=== PATIENT | male | born 1995 | race Caucasian/White ===

== ENCOUNTER 2018-03-30 18:07 | Emergency (ER) | payer BC ==
[~2018-03-30] VITALS: Ht 175.3 cm; Wt 119.0 kg
[2018-03-30 18:23] VITALS: BP 118/63; PULSE 88; RESP 18; Ht 175.3 cm; Wt 119.0 kg
[2018-03-30] MEDS ORDERED: CITA20TA8 PO (20:23)
[2018-03-30] MEDS ORDERED: OLAN20TA29 PO (20:23)
[2018-03-30] MEDS ORDERED: CITA10TA5 PO (20:23)
[2018-03-30] MEDS ORDERED: OLAN10TA32 PO (20:23)
--- NOTE | 2018-03-30 20:35 | ERD ---
ER Documentation Chief Complaint Chief Complaint PYSCH MED REFILL REQUEST HPI 23-year-old male with history of bipolar disorder order and schizophrenia is accompanied by his mother requesting for medication refill. Patient states that he was recently released from [facility] hospital. He had a appointment with his psychiatrist on March 19, 2018, but he missed that appointment. His medication ran out 2 days ago. Mother states that he already made another appointments, which is on 04/08/2018. Mother states that she will make sure patient would not miss his follow-up appointment. Patient is taking olanzapine and citalopram for his psychiatric conditions. Denies suicidal or homicidal id eations. ROS All systems reviewed and are negative except as per history of present illness. Medications Home Meds Active Scripts Citalopram Hydrobromide* (Citalopram Hydrobromide*) 20 Mg Tablet, 20 MG PO DAILY for 14 Days, #14 TAB Prov:JENAE GLYNN. MANAGER GYN 03/30/18 Citalopram Hydrobromide* (Citalopram Hydrobromide*) 10 Mg Tablet, 10 MG PO DAILY for 14 Days, #14 TAB Prov:JENAE GLYNN. MANAGER GYN 03/30/18 Olanzapine* (Olanzapine* ODT) 20 Mg Tab.rapdis, 20 MG PO QHS for 14 Days, #14 TAB Prov:JENAE GLYNN. MANAGER GYN 03/30/18 Olanzapine* (Olanzapine* ODT) 10 Mg Tab.rapdis, 10 MG PO BID for 14 Days, #28 TAB Prov:JENAE GLYNN. MANAGER GYN 03/30/18 PMhx/Soc Medical and Surgical Hx: pt denies Medical Hx, pt denies Surgical Hx Hx Alcohol Use: No Hx Substance Use: No Hx Tobacco Use: No Smoking Status: Never smoker Physical Exam Vitals Vital Signs Date Temp Pulse Resp B/P (MAP) Pulse Ox O2 O2 Flow FiO2 Time Delivery Rate 03/30/18 97.8 88 18 118/63 96 18:23 (81) Physical Exam General: Well-developed, well-nourished, conscious and coherent, in no distress Skin: Warm and dry without rash, good texture and turgor Head: Normocephalic without evidence of trauma Chest: Normal AP diameter. Good expansion without retractions. Nontender. Lungs are clear to auscultate bilaterally with good tidal volume Heart: Regular rate and rhythm. No murmur, rub, or gallops heard Extremities: Full range of motion. Good strength bilaterally. Neuro: Alert and oriented 4, GCS 15. Psych: Normal mood, good eye contact. Procedures/MDM Well-appearing 23-year-old male with history of bipolar disorder and schizophrenia presents the ED for medication refill. I will refill his medication for 2 weeks, as patient already has a follow-up appointment with his psychiatrist. I advised patient that he should not miss his follow-up appointment. Patient does not have any suicidal homicidal ideations, suitable for outpatient management. Patient appears well, stable for discharge and outpatient management. Medical decision making shared with patient and family. Education provided to patient and family. Patient and family expressed understanding of the plan. Medications on discharge: Olanzapine, citalopram. Follow-up: Primary care provider in 2-3 days or return to ED if worse. Disclaimer: Inadvertent spelling and grammatical errors are likely due to EHR/dictation software use and do not reflect on the overall quality of patient care. Also, please note that the electronic time recorded on this note does not necessarily reflect the actual time of the patient encounter. Departure Diagnosis: Primary Impression: Encounter for medication refill Condition: Stable Patient Instructions: Taking Medicine Safely Referrals: [facility] YOU HAVE RECEIVED A MEDICAL SCREENING EXAM AND THE RESULTS INDICATE THAT YOU DO NOT HAVE A CONDITION THAT REQUIRES URGENT TREATMENT IN THE EMERGENCY DEPARTMENT. FURTHER EVALUATION AND TREATMENT OF YOUR CONDITION CAN WAIT UNTIL YOU ARE SEEN IN YOUR DOCTORS OFFICE WITHIN THE NEXT 1-2 DAYS. IT IS YOUR RESPONSIBILITY TO MAKE AN APPOINTMENT FOR FOLOW-UP CARE. IF YOU HAVE A PRIMARY DOCTOR --you should call your primary doctor and schedule an appointment IF YOU DO NOT HAVE A PRIMARY DOCTOR YOU CAN CALL OUR PHYSICIAN REFERRAL HOTLINE AT IF YOU CAN NOT AFFORD TO SEE A PHYSICIAN YOU CAN CHOSE FROM THE FOLLOWING [facility] [id number] [facility] [address] [facility] [address] [facility] [address] [facility] [address] [facility]. [facility] [address] Additional Instructions: Please follow-up with your psychiatrist as scheduled. JENAE GLYNN NP Mar 30, 2018 20:35
== END 2018-03-30 20:49 | disposition home or self-care (01) ==
LOC: FTE 18:07
DX: Z76.0 Encounter for issue of repeat prescription (principal); R40.2412 Glasgow coma scale score 13-15, at arrival to emergency department
CPT/HCPCS: 99281